=== PATIENT | male | born 1980 | race Caucasian/White ===

== ENCOUNTER 2022-03-08 04:13 | Emergency (ER) | payer BC ==
--- OUTSIDE RECORDS SUMMARY | 2022-03-08 04:16 | XMS REPORT | Continuity of Care Document ---
:1980 Author Organization [facility] t Address [address] [place] [address] [address] [place] [address] Care Team Providers Name Role Phone PCP, DOES NOT HAVE A Primary Care Physician Unavailable BRANDYN Attending Clinician Unavailable BRANDYN Attending Clinician Unavailable Ollie Salcedo MD Attending Clinician Brandyn PACHECO Attending Clinician JULIO Admitting Clinician Unavailable Payers Payer Name Policy Type Policy Number Effective Date Expiration Date S ouralley [employer] [id number] 2021 00:00:00 Problems Condition Condition Condition Status Onset Resolution Last Treating Co mments Source Name Details Category Date Date Treatment Clinician Date No known No known Disease Unive rs active active ity of problems problems [facility] Allergies, Adverse Reactions, Alerts Allergy Allergy Status Severity Reaction(s) Onset Inactive Treating Comm ents Source Name Type Date Date Clinician NO KNOWN Drug Active Univers ALLERGIE Class ity of S [facility] Social History Social Habit Start Date Stop Date Quantity Comments Source Exposure to Not sure [facility] SARS-CoV-2 (event) Medica l Branch Sex Assigned At [birth year] [facility] 00:00:00 00:00:00 [facility] Smoking Status Start Date Stop Date Source Unknown if ever smoked [facility] Medications Ordered Filled Start Stop Current Ordering Indication Dosage Frequency Signature Comments Components Source Medication Medication Date Date Medication? Clinician (SIG) Name Name NaCl 0.9% 2020-08 1000mL at 999 Uni vers (NS) bolus 0-24 10-24 mL/hr, ity of infusion 00:45: 03:29 1,000 mL, Mikey as 1,000 mL 00 :00 IV Medical Infusion, Branch ONCE, 1 dose, On 06/06/21 at 1945, ORI sodium 2020-08 Yes 5mL 5 mL, Univers chloride 0-23 Intravenou ity o f (NS) 22:21: s, PRN, [place] injection 5 06 Starting Medi phil mL on Sat Branch 06/06/21 at 1721, Until Discontinu ed, Routine, IV line flushing buprenorphi 2020-[address] Unive rs ne 0-23 under the ity of HCl/naloxon 18:43: tongue. Mikey as e HCl 28 Medical (SUBOXONE Branch SL) Vital Signs Vital Name Observation Time Observation Value Comments Source Systolic blood 2021-06-07 04:50:00 127 [facility] Diastolic blood 2021-06-07 04:50:00 73 mm[Hg] [facility] Heart rate 2021-06-07 04:50:00 61 /min [facility] Respiratory rate 2021-06-07 04:50:00 17 /min [facility] Oxygen saturation in 2021-06-07 04:50:00 99 /min [facility] Arterial blood by [facility] Pulse oximetry Kinde Body temperature 2021-06-06 22:16:00 36.5 Sandra [facility] Body weight 2021-06-06 22:16:00 79.833 kg [facility] Procedures Procedure Date / Time Performing Clinician Source Performed TROPONIN I 2021-06-07 03:09:00 Zohaib Arizmendi [facility] URINE DRUG (IMMUNOASSAY) 2021-06-07 01:37:[address] [facility] DRUG [facility] SCREEN W/O REFLEX CREATINE KINASE 2021-06-06 23:17:00 Julio [facility] LIPASE 2021-06-06 23:17:00 [facility] TROPONIN I 2021-06-06 23:17:00 [facility] THYROID STIMULATING 2021-06-06 23:17:00 Raul Salcedo [facility] HORMONE [facility] COMP. METABOLIC PANEL 2021-06-06 23:17:00 [id number] SALICYLATE 2021-06-06 23:17:00 Raul Salcedo [facility] CBC WITH DIFF 2021-06-06 23:17:00 [facility] PROTHROMBIN TIME / INR 2021-06-06 23:17:00 Rashad Kim rsity [facility] ACTIVATED PARTIAL 2021-06-06 23:17:00 Julio [facility] THRMPLAS SILKE [facility] XR CHEST 1 VW 2021-06-06 22:49:25 [facility] Encounters Start End Encounter Admission Attending Care Care Encounter Source Date/Time Date/Time Type Type Clinicians Facility Department ID 2021-06-06 2021-06-06 Emergency X ZOHAIB ARIZMENDI [facility] ERT 1 [id number] Univers 17:38:00 23:52:00 ZOHAIB ARIZMENDI [facility] 2021-06-06 2021-06-06 Emergency DenisseRaul TRAUMA 1.2.84 0.114 [id number] Univers 17:38:00 23:52:00 Zohaib Arizmendi [place] [id number] [id number] [address] Results Test Description Test Time Test Comments Results Result Comments Source TROPONIN I 2021-06-07 04:12:48 Test Item Value Reference Range Interpretation Comme nts TROPONIN I (test code = 0.002 ng/mL See_Comment [Au tomated message] The [id number]) system which ge nerated this result tra nsmitted reference range : <=0.034. The reference r comfort was not used to int erpret this result as normal/abnormal . JORGE (test code = JORGE) Reference (Normal) Range (defined by the 99th percentile reference limit): <= 0.034 ng/mL Note: Cardiac troponin begins to rise 3-4 hours after the onset of ischemia. Repeat in 4-6 hours if the sample was drawn within 3-4 hours of the onset of the symptom and found normal. Diagnosis of myocardial injury is made with acute changes in cTn concentrations with at least one serial sample above the 99th percentile upper reference limit (URL), taken together with the patient's clinical presentation. Biotin has been reported to cause a negative bias, interpret results relative to patient's use of biotin. Lab Interpretation Normal (test code = 95808-7) [facility] [id number] 00:25:39 Test Item Value Reference Range Interpretation Comments TSH (test code = See_Comment [Automated message] [id number]) The system R&V generated this result transmitted ref erence range: 0.45 - 4 .70 mIU/L. The refe rence range was not u sed to interpret this result as normal/abnor mal. Lab Interpretation (test Normal code = 75345-7) [facility]EN2021-10-24 00:00:51 Test Item Value Reference Range Interpretation Comments ACETAMINOP (test code = <10.0 10.0-30.0 L 8563593411) JORGE (test code = JORGE) Toxic: Greater than 200 ug/mL @ 4 hour post ingestion or greater than 50 ug/mL @ 12 hour post ingestion Lab Interpretation (test Abnormal code = 40516-2) [facility]2021-10-23 23:59:21 Test Item Value Reference Range Interpretation Comments SALICYLATE (test code <10 mg/L = 4732969351) JORGE (test code = JORGE) Therapeutic Range: ? Analgesic and Antipyretic Use ? 20-100 mg/L ? ? Anti-Inflammatory Use ? 100-250 mg/L Toxic Range: ? Greater than 300 mg/L [facility] [id number] 23:53:54 Test Item Value Reference Interpretation Comments Range TROPONIN I (test 0.002 ng/mL See_Comment [Automated code = [id number]) message] The system which generated this result transmitted reference range : <=0.034. The reference range was not used to interpret this result as normal/abnormal . JORGE (test code = Reference (Normal) JORGE) Range (defined by the 99th percentile reference limit): <= 0.034 ng/mL Note: Cardiac troponin begins to rise 3-4 hours after the onset of ischemia. Repeat in 4-6 hours if the sample was drawn within 3-4 hours of the onset of the symptom and found normal. Diagnosis of myocardial injury is made with acute changes in cTn concentrations with at least one serial sample above the 99th percentile upper reference limit (URL), taken together with the patient's clinical presentation. Biotin has been reported to cause a negative bias, interpret results relative to patient's use of biotin. Lab Interpretation Normal (test code = 68146-7) [facility]. METABOLIC PANEL (74640)2021-06-06 23:38:59 Test Item Value Reference Range Interpretation Comments NA (test code = 139 mmol/L 135-145 4273623150) K (test code = 4.0 mmol/L 3.5-5.0 2853363557) CL (test code = 105 mmol/L 98-108 8670487944) CO2 TOTAL (test code = 27 mmol/L 23-31 2378364449) AGAP (test code = 2-16 7615501671) BUN (test code = 16 mg/dL 7-23 3363641756) GLUCOSE (test code = 96 mg/dL 70-110 6436591111) CREATININE (test code = 0.84 mg/dL 0.60-1.25 7701098698) TOTAL BILI (test code = 0.9 mg/dL 0.1-1.7 0171525349) CALCIUM (test code = 9.3 mg/dL 8.6-10.6 5887913783) T PROTEIN (test code = 7.7 g/dL 6.3-8.2 8198902341) ALBUMIN (test code = 4.7 g/dL 3.5-5.0 3937604498) ALK PHOS (test code = 75 U/L 34-122 9090615305) ALTv (test code = 74 U/L 5-50 H 1742-6) AST(SGOT) (test code = 53 U/L 13-40 H 2515047124) eGFR (test code = mL/min/1.73m2 8756327982) JORGE (test code = JORGE) Association of Glomerular Filtration Rate (GFR) and Staging of Kidney Disease* + --+ --+ ------+| GFR (mL/min/1.73 m2) ?| With Kidney Damage ?| ?Without Kidney Damage+ --------+ --------+ +| ?>90 ?| ?Stage one ?| ? Normal ?+ ---+ ---+ -------+| ?60-89 ?| ?Stage two ?| ? Decreased GFR ? + --+ --+ ------+| ?30-59 ?| ?Stage three ?| ? Stage three ? + --+ --+ ------+| ?15-29 ?| ?Stage four ? | ? Stage four ?+ ---+ ---+ -------+| ?<15 (or dialysis) ? ?| ?Stage five ? | ? Stage five ?+ ---+ ---+ -------+ *Each stage assumes the associated GFR level has been in effect for at least three months. ?Stages 1 to 5, with or without kidney disease, indicate chronic kidney disease. Notes: Determination of stages one and two (with eGFR >59mL/min/1.73 m2) requires estimation of kidney damage for at least three months as defined by structural or functional abnormalities of the kidney, manifested by either:Pathological abnormalities or Markers of kidney damage (including abnormalities in the composition of the blood or urine or abnormalities in imaging tests). Lab Interpretation Abnormal (test code = 91142-9) [facility]IP[facility], [id number] 23:38:59 Test Item Value Reference Range Interpretation Comments LIPASE (test code = 2652041348) 88 U/L 0-220 Lab Interpretation (test code = Normal 24666-1) [facility]CREAT[facility] [id number] 23:38:59 Test Item Value Reference Range Interpretation Comments CK (test code = 0347107556) 141 U/L 33-194 Lab Interpretation (test code = Normal 88137-5) [facility] HospitalaPTT2021-10-23 23:38:39 Test Item Value Reference Range Interpretation Comments APTT Patient (test code = See_Comment [ Automated message] 5913-2) The system R&V generated this result transmitted ref erence range: 26 - 36 Seconds. The re ference range was not u sed to interpret this result as normal/abnor mal. Lab Interpretation (test Normal code = 53561-4) [facility] HospitalPROTHROMBIN TIME / [id number] 23:38:39 Test Item Value Reference Range Interpretation Comments PROTIME PATIENT (test See_Comment [Auto mated message] code = 5964-2) The system wh ich generated this result transmitted ref erence range: 10.1 - 1 2.6 Seconds. The re ference range was not u sed to interpret this result as normal/abnor mal. INR (test code = 6301-6) Nor mal INR <1.1; Warfarin Therap eutic range 2.0 to 3. 0 or 2.5 to 3.5, dep ending upon the indica tions. Lab Interpretation (test Normal code = 09239-3) [facility] WITH [id number] 23:31:57 Test Item Value Reference Range Interpretation Comments WBC (test code = See_Comment [Automated 6090-2) message] The sy stem which generated this result transmitted reference range : 4.20 - 10.70 10*3/?L. The reference range was not used to interpret this result as normal/abnormal . RBC (test code = See_Comment [Automated 279-8) message] The sy stem which generated this result transmitted reference range : 4.26 - 5.52 10*6/?L. The reference range was not used to interpret this result as normal/abnormal . HGB (test code = 13.8 g/dL 12.2-16.4 718-7) HCT (test code = 41.5 % 38.4-49.3 4544-3) MCV (test code = 86.1 fL 81.7-95.6 787-2) MCH (test code = 28.6 pg 26.1-32.7 785-6) MCHC (test code = 33.3 g/dL 31.2-35.0 786-4) RDW-SD (test code = 42.6 fL 38.5-51.6 80578-5) RDW-CV (test code = 13.5 % 12.1-15.4 788-0) PLT (test code = See_Comment [Automated 777-3) message] The sy stem which generated this result transmitted reference range : 150 - 328 10*3/ ?L. The reference r comfort was not used to interpret this result as normal/abnormal . MPV (test code = 9.9 fL 9.8-13.0 37949-9) NRBC/100 WBC (test See_Comment [Automat ed code = 5018045663) message] The system which generated this result transmitted reference range : 0.0 - 10.0 /100 WBCs. The refer ence range was not u sed to interpret th is result as normal/abnormal . NRBC x10^3 (test code <0.01 See_Comment [Auto mated = 1852344043) message] The s ystem which generated this result transmitted reference range : 10*3/?L. The reference range was not used to interpret this result as normal/abnormal . GRAN MAT (NEUT) % 59.3 % (test code = 770-8) IMM GRAN % (test code 0.00 % = 2074594909) LYMPH % (test code = 30.1 % 736-9) MONO % (test code = 8.3 % 5905-5) EOS % (test code = 0.6 % 713-8) BASO % (test code = 1.7 % 706-2) GRAN MAT x10^3(ANC) 2.85 10*3/uL 1.99-6.95 (test code = 6262858844) IMM GRAN x10^3 (test <0.03 0.00-0.06 code = 0464199056) LYMPH x10^3 (test code 1.45 10*3/uL 1.09-3.23 = 731-0) MONO x10^3 (test code 0.40 10*3/uL 0.36-1.02 = 742-7) EOS x10^3 (test code = 0.03 10*3/uL 0.06-0.53 L 711-2) BASO x10^3 (test code 0.08 10*3/uL 0.01-0.09 = 704-7) Lab Interpretation Abnormal (test code = 87381-7) [facility]"
--- NOTE | 2022-03-08 04:35 | ER ---
Nurse's Notes [facility] Name: Yunior Brice Age: 41 yrs Sex: Male : 1980 Arrival Date: 03/08/2022 Time: 04:19 Bed 20 Private MD: Diagnosis: Cellulitis of buttock Presentation: 03/08 04:30 Chief complaint: Patient states: he thinks he may have been bitten by a spider has a bb painful, reddened area on right buttock. Coronavirus screen: At this time, the client does not indicate any symptoms associated with coronavirus-19. Ebola Screen: No symptoms or risks identified at this time. Initial Sepsis Screen: Does the patient meet any 2 criteria? No. Patient's initial sepsis screen is negative. Does the patient have a suspected source of infection? No. Patient's initial sepsis screen is negative. Risk Assessment: Do you want to hurt yourself or someone else? Patient reports no desire to harm self or others. Onset of symptoms was March 07, 2022. 04:30 Method Of Arrival: Ambulatory bb 04:30 Acuity: DARRYL 5 bb Triage Assessment: 04:40 Bite description: bite sustained to right lower back by a spider, animal information: 1 vaccination(s) is not applicable. General: Appears. General: Behavior is calm, cooperative, appropriate for age. Historical: - Allergies: 04:31 No Known Allergies; bb - Home Meds: 04:31 None [Active]; bb - Immunization history:: Client reports having NOT received the Covid vaccine. - Social history:: Smoking status: Patient reports use of chewing tobacco. Screenin:27 Abuse screen: Denies threats or abuse. Nutritional screening: No deficits noted. 1 Tuberculosis screening: No symptoms or risk factors identified. Fall Risk None identified. Assessment: 04:27 Pain: Complains of pain in right lower back Pain currently is 6 out of 10 on a pain bh1 scale. Derm: Skin has lesions on RIGHT BUTTOCKS Skin is red. Vital Signs: 04:30 BP 147 / 102; Pulse 82; Resp 16 S; Temp 98.7(O); Pulse Ox 97% on R/A; Weight 72.57 kg bb (R); Height 5 ft. 5 in. (165.10 cm) (R); Pain 6/10; 04:30 Body Mass Index 26.63 (72.57 kg, 165.10 cm) ED Course: 04:19 Patient arrived in ED. bp1 04:22 Francis Alejo DO is Attending Physician. ms3 04:27 Annika Coles, RN is Primary Nurse. bh1 04:27 No apparent distress. Resting quietly. Awaiting ED provider evaluation. bh1 04:27 Patient has correct armband on for positive identification. Bed in low position. Call 1 light in reach. Pulse ox on. NIBP on. 04:27 No provider procedures requiring assistance completed. Patient did not have IV access bh during this emergency room visit. 04:31 Triage completed. bb 04:31 Arm band placed on Patient placed in an exam room, on a stretcher, on pulse oximetry. bb 04:35 Neo Kenney DO is Referral Physician. ms3 Administered Medications: No medications were administered Medication: 04:27 VIS not applicable for this client. [facility] Outcome: 04:35 Discharge ordered by MD. ms3 04:39 Discharged to home ambulatory. 1 04:39 Condition: good 04:39 Discharge instructions given to patient, Instructed on discharge instructions, follow up and referral plans. medication usage, Demonstrated understanding of instructions, follow-up care, medications, wound care, Prescriptions given X 1. 04:41 Patient left the ED. [facility] Signatures: Lily Delgado RN RN bb Francis Alejo DO DO ms3 Mariana Hu bp1 Annika Coles, JYOTI RN [facility]
--- NOTE | 2022-03-08 04:41 | EDPHYS ---
Physician Documentation [facility] Name: Yunior Brice Age: 41 yrs Sex: Male : 1980 Arrival Date: 03/08/2022 Time: 04:19 Bed 20 Private MD: ED Physician Francis Alejo HPI: 03/08 04:37 This 41 yrs old Male presents to ER via Ambulatory with complaints of Insect Bite. ms3 04:37 31-year-old male with no past medical history presents for rash on his right buttock ms3 that began yesterday. Patient states discomfort is a 6/10 and described as being sharp. Patient states pain is worse with movement. Patient denies alleviating factors. Patient denies fevers, chills, nausea, vomiting.. Historical: - Allergies: 04:31 No Known Allergies; bb - Home Meds: 04:31 None [Active]; bb - Immunization history:: Client reports having NOT received the Covid vaccine. - Social history:: Smoking status: Patient reports use of chewing tobacco. ROS: 04:37 Constitutional: Negative for fever, and chills. Neck: Negative for injury, pain, and ms3 swelling, Cardiovascular: Negative for chest pain, and palpitations. Respiratory: Negative for shortness of breath, cough, wheezing, and pleuritic chest pain, Abdomen/GI: Negative for abdominal pain, nausea, vomiting, diarrhea, and constipation. 04:37 MS/Extremity: Negative for injury and deformity. 04:37 Skin: Positive for rash. 04:37 All other systems are negative. Exam: 05:17 Constitutional: This is a well developed, well nourished patient who is awake, alert, ms3 and in no acute distress. Head/Face: Normocephalic, atraumatic. ENT: Nares patent. No nasal discharge, no septal abnormalities noted. Tympanic membranes are normal and external auditory canals are clear. Oropharynx with no redness, swelling, or masses, exudates, or evidence of obstruction, uvula midline. Mucous membranes moist. Neck: Trachea midline, no cervical lymphadenopathy. Supple, full range of motion without nuchal rigidity, or vertebral point tenderness. No Meningismus. Chest/axilla: Normal chest wall appearance and motion. Nontender with no deformity. Cardiovascular: Regular rate and rhythm with a normal S1 and S2. No gallops, murmurs, or rubs. Normal PMI, no JVD. No pulse deficits. Respiratory: Lungs have equal breath sounds bilaterally, clear to auscultation and percussion. No rales, rhonchi or wheezes noted. No increased work of breathing, no retractions or nasal flaring. Abdomen/GI: Soft, non-tender, with normal bowel sounds. No distension or tympany. No guarding or rebound. No evidence of tenderness throughout. 05:17 Skin: cellulitis, that is mild, on the buttocks. Vital Signs: 04:30 BP 147 / 102; Pulse 82; Resp 16 S; Temp 98.7(O); Pulse Ox 97% on R/A; Weight 72.57 kg bb (R); Height 5 ft. 5 in. (165.10 cm) (R); Pain 6/10; 04:30 Body Mass Index 26.63 (72.57 kg, 165.10 cm) bb MDM: 04:35 Patient medically screened. ms3 05:17 Data reviewed: vital signs, nurses notes, and as a result, I will discharge patient. ms3 Counseling: I had a detailed discussion with the patient and/or guardian regarding: the historical points, exam findings, and any diagnostic results supporting the discharge/admit diagnosis, the need for outpatient follow up, to return to the emergency department if symptoms worsen or persist or if there are any questions or concerns that arise at home. Administered Medications: No medications were administered Disposition Summary: 03/08/22 04:35 Discharge Ordered Location: Home ms3 Condition: Stable ms3 Diagnosis - Cellulitis of buttock ms3 Followup: ms3 - With: Neo Kenney DO - When: 2 - 3 days - Reason: Recheck today's complaints Discharge Instructions: - Discharge Summary Sheet ms3 - Cellulitis, Adult ms3 Forms: - Medication Reconciliation Form ms3 - Thank You Letter ms3 - Work release form ds4 - Antibiotic Education ms3 - Prescription Opioid Use ms3 Prescriptions: - Doxycycline Hyclate 100 mg Oral Tablet - take 1 tablet by ORAL route every 12 hours; 20 tablet; Refills: 0, Product ms3 Selection Permitted Signatures: Lily Delgado RN RN Francis Cruz DO DO ms3
[2022-03-08 05:14] VITALS: BP 147/102; TEMP 98.7; O2SAT 97
== END 2022-03-08 04:41 | disposition home or self-care (01) ==
LOC: ER 04:13
DX: L03.317 Cellulitis of buttock (principal); F17.220 Nicotine dependence, chewing tobacco, uncomplicated
CPT/HCPCS: 99283